=== PATIENT | male | born 1980 | race Caucasian/White ===

== ENCOUNTER 2021-10-16 07:41 | Emergency (ER) | payer OTHER ==
[2021-10-16 08:45] LABS: HEMOGLOBIN 15.5 gm/dl (14.0-17.5); RED BLOOD COUNT 5.01 M/UL (4.20-5.50); WHITE BLOOD COUNT 12.1 K/UL (4.5-11.0)
[2021-10-16 09:08] LABS: BUN/CREATININE RATIO 9 (0-10)
== END 2021-10-16 11:21 | disposition home or self-care (01) ==
LOC: ER1 07:41
PROVIDERS: Nurse Practitioner
DX: K12.2 Cellulitis and abscess of mouth (principal); K02.9 Dental caries, unspecified; F17.290 Nicotine dependence, other tobacco product, uncomplicated
CPT/HCPCS: 70487; 80053; 83605; 85025; 86140; 87040; 96374; 96375; 99283; J0295; J1885; J2270; J2405; J7030; Q9967